=== PATIENT | female | born 1960 | race Two or more races ===

== ENCOUNTER 2021-04-13 14:26 | Emergency (ER) | payer OTHER ==
[~2021-04-13] VITALS: Ht 162.6 cm; Wt 63.5 kg
--- NOTE | 2021-04-13 14:52 | NUR ---
GLF LAST NIGHT, C/O LEFT ANKLE, WRIST AND BACK PAIN. NO KO.
--- NOTE | 2021-04-13 15:09 | NUR ---
AWAITING FOR ER PROVIDER TO SEE
[2021-04-13] MEDS ORDERED: TRAMADOL HCL 50 MG TABLET PO ONE (15:30)
[2021-04-13] MEDS ORDERED: TRAMADOL HCL 50 MG TABLET ONE (15:33)
[2021-04-13] MEDS ORDERED: TDAP [DIPH/PERTUSSIS/TET] 0.5 ML VIAL IM ONE ×2 (15:44→16:00)
[2021-04-13] MEDS ORDERED: TRAM50TA2 PO (16:25)
[2021-04-13] MEDS ORDERED: IBUP-1955 PO (16:25)
[2021-04-13] MEDS ORDERED: BACI3.5O23 OP (16:25)
[2021-04-13 16:38] VITALS: BP 132/77
--- NOTE | 2021-04-13 16:38 | NUR ---
Patient discharged to home in stable condition. Written and verbal after care instructions given. Patient verbalizes understanding of instruction.
== END 2021-04-13 16:39 | disposition home or self-care (01) ==
LOC: ER 15:31
DX: S39.012A Strain of muscle, fascia and tendon of lower back, initial encounter (principal); S80.212A Abrasion, left knee, initial encounter; S80.211A Abrasion, right knee, initial encounter; M25.532 Pain in left wrist; M25.572 Pain in left ankle and joints of left foot; M25.512 Pain in left shoulder; W18.39XA Other fall on same level, initial encounter; Y93.01 Activity, walking, marching and hiking; Y92.89 Other specified places as the place of occurrence of the external cause; Y99.8 Other external cause status
CPT/HCPCS: 73030-TC; 73110; 73130-TC; 73610-TC; 90715

== ENCOUNTER 2021-04-16 11:31 | Emergency (ER) | payer OTHER ==
[~2021-04-16] VITALS: Ht 165.1 cm; Wt 63.5 kg
[~2021-04-16 11:31] MED LIST: BACI3.5O23 OP; IBUP-1955 PO; TRAM50TA2 PO
--- NOTE | 2021-04-16 11:44 | NUR ---
RJ FROM HOME. TO E RBED 4. AAOX4. NOT IN RESP DISTRESS. AMBULATORY. R HAND PAIN SINCE WAKING UP THIS MORNING. 07/24 UNABLE TO MOVE 3RD, 4TH AND 5TH DIGIT. PT HAD A FALL COUPLE DAYS AGO. AWAITING MD FOR YAS
[2021-04-16] MEDS ORDERED: IBUP-1955 PO (12:28)
[2021-04-16] MEDS ORDERED: HYDR-3972 PO (12:29)
--- NOTE | 2021-04-16 12:35 | NUR ---
Patient discharged to home in stable condition. Written and verbal after care instructions given. Patient verbalizes understanding of instruction. Pt ambulatory with min assist by her son.
[2021-04-16 12:37] VITALS: BP 154/78
== END 2021-04-16 12:38 | disposition home or self-care (01) ==
LOC: ER 11:37
DX: S80.212A Abrasion, left knee, initial encounter (principal); S80.211A Abrasion, right knee, initial encounter; S90.512A Abrasion, left ankle, initial encounter; S69.81XA Other specified injuries of right wrist, hand and finger(s), initial encounter; W19.XXXA Unspecified fall, initial encounter; Y93.89 Activity, other specified; Y92.89 Other specified places as the place of occurrence of the external cause; Y99.8 Other external cause status
CPT/HCPCS: 73130-TC